=== PATIENT | male | born 1965 | race Caucasian/White ===

== ENCOUNTER 2018-04-13 15:07 | Outpatient (RCR) | payer MEDICAID ==
[2016-12-31 11:00] VITALS: Ht 167.6 cm; Wt 107.0 kg
[~2018-04-13] VITALS: Ht 167.6 cm; Wt 107.0 kg
[~2018-04-13 15:07] MED LIST: AMLO-111 PO; ATOM80CA3 PO; ATOR10TA24 PO; AZI250 PO; BUTA-303 PO; CIP500 PO; CIPR-212 PO; CITA-128 PO; CLI150 PO; CLON-303 *; COL0.6 PO; COM14R IH; CYCL10TA29 PO; DULO60CA56 PO; GABA-549 PO; GUAN1TAB34 PO; HYDR-385 PO; HYDR-4309 PO; HYDR2TAB74 PO; INSU100V24 SQ; LANI SUBQ; LEVO15TA6 PO; LISI-374 PO; LORA-629 PO; LUR80PT PO; MECL-111 PO; METH-543 PO; METO25TA93 PO; METO50TA19 PO; OXYC-865 PO; PANT40TA65 PO; PER PO; RIV10 PO; SIMV-54 PO; TRAZ100T31 PO
--- NOTE | 2018-04-13 17:28 | Medical Nutrition Therapy ---
Nutrition Anthropometrics Height (Inches): 66 Weight (Pounds): 236 BMI: 38 Isai Nutrition Score: Isai Nutrition Risk Score: Dietary Referral Nutrition Risk Factors: Mech. Ventilated Nutrition Risk Comment: Physical Findings Physical Appearance: Obese BMI 30-39 Skin Appearance Skin Appearance: Edema Edema Location Modifier: Edema Location: Type of Edema: Degree of Edema: Gastrointestinal Symptoms GI Symtoms: Tube Present: Bowel Sounds: Recent Bowel Pattern: Stool Characteristics: Nutrition/Food History Alcohol Use: Never Exercise: Yes Breakfast: 7-8 am, cheerios w/ milk, banana Lunch: 11am, [place]/[employer] [place] on wheat bread Dinner: 4-5pm, premade banquet meals Snacks: chips or crackers Nutritional Education Nutrition Education Topic: Diabetic Nutrition Learning Barriers: Emotional (Food stamps/insecurities) Learning Readiness: Interested Teaching Methods: Discussion, Handout, Demonstration Response to Teaching: Verbalize understanding, Reinforcement needed Teaching Recipient: Patient Nutrition Counselin/23. Met with pt to speak about diabetes. Pt stated he was on food stamps. Talked about lower cost foods, such as his tv dinners that he generally eats for dinner. Pt does not have teeth. Also recommneded purchasing peanut butter, frozen vegetables, and softer foods. Considered [employer], to help pt with food stamp spending, as he said he gets lower at the end of the month. Recommend pt consumes 50 g of carbs per meal. Reviewed plate method. Setup a support plan and goal with pt: want to feel in control of diabetes. Pt plans to attend diabetes classes, exercising daily, and checking blood sugar 3-4x daily, to fullfill goal. Reviewed diabetic issues, concerns, and diabetic distress. Nutrition Monitoring & Eval RD Patient Assessment Time: [address] Assessment Type: RD Education Nutritional Comment: 04/13. Provided 60 min diabetes education focusing on meals, diabetes, goals, and diabetes distress. MR Copies To Copies to: LESLEY ROMERO DO ; TIESHA BENNETT Apr 13, 2018 16:34
--- NOTE | 2018-05-10 15:53 | Medical Nutrition Therapy ---
Nutritional Education Nutrition Education Topic: Diabetic Nutrition Learning Readiness: Interested Teaching Methods: Discussion, Handout, Demonstration Response to Teaching: Verbalize understanding Teaching Recipient: Patient Nutrition Counseling: Provided diabetes education in group session discussing, what is CHO, protien, fat, healthy heart, alcohol , dining out, fiber, shoping tips. Nutrition Monitoring & Eval RD Patient Assessment Time: [address] Assessment Type: RD Education Nutritional Comment: 04/13. Provided 60 min diabetes education in a group setting focusing on nutrition Copies To Copies to: LESLEY ROMERO DO ; CODY HERNANDEZ May 10, 2018 15:52
--- NOTE | 2018-05-10 16:14 | Medical Nutrition Therapy ---
Nutrition Anthropometrics Height (Inches): 66 Weight (Pounds): 236 BMI: 38 Isai Nutrition Score: Isai Nutrition Risk Score: Dietary Referral Nutrition Risk Factors: Mech. Ventilated Nutrition Risk Comment: Physical Findings Physical Appearance: Obese BMI 30-39 Skin Appearance Skin Appearance: Edema Edema Location Modifier: Edema Location: Type of Edema: Degree of Edema: Gastrointestinal Symptoms GI Symtoms: Tube Present: Bowel Sounds: Recent Bowel Pattern: Stool Characteristics: Nutrition/Food History Good Nutritional Education Nutrition Education Topic: Other Learning Barriers: Cognitive Learning Readiness: Interested Teaching Methods: Discussion, Handout, Audiovisual Response to Teaching: Verbalize understanding Teaching Recipient: Patient Nutrition Monitoring & Eval RD Patient Assessment Time: [address] Assessment Type: RD Education Nutritional Comment: 04/13. Provided 60 min diabetes education in a group setting focusing on nutrition 05/10 Pt diagnosed with T2DM several years ago with overt symptoms and blood glucose levels in the 800's. States that he is in good control of his diabetes with blood glucose reading usually 90-120. Pt instructed on Living with Diabetes topics including foot care, oil heaterman complications, exercise, sick day care, etc. Pt appears interested in diabetes topics and able to answer questions regarding topics covered. I personally spent a total of 60 minutes educating/counseling patient regarding diabetes self-management in a group setting. See education section and my note above for details. DALE HUMPHREY May 10, 2018 16:13
== END 2018-05-18 ==
LOC: DIET 15:07
PROVIDERS: ATTEND Family Medicine
DX: Z71.3 Dietary counseling and surveillance (principal); E11.9 Type 2 diabetes mellitus without complications; Z68.38 Body mass index [BMI] 38.0-38.9, adult; Z79.84 Long term (current) use of oral hypoglycemic drugs
CPT/HCPCS: G0108; G0109

== ENCOUNTER 2018-07-27 02:41 | Day surgery (SDC) | payer MEDICAID ==
[2016-12-31 11:00] VITALS: Ht 167.6 cm; Wt 98.0 kg
[~2018-07-27] VITALS: Ht 167.6 cm; Wt 98.0 kg
[~2018-07-27 02:41] MED LIST changes: +FENO145T36 PO; -HYDR-4309 PO; +HYDR-653 PO; +METF-450 PO
[2018-07-27 08:29] VITALS: BP 146/94
[2018-07-27] MEDS ORDERED: LIDOCAINE/SOD BICARB 8.4% SYR ID ONE (08:30)
[2018-07-27] MEDS ORDERED: NORMOSOL R SOLN(*) 1000 ML BAG 1,000 ML IV PRN (08:30)
[2018-07-27] MEDS ORDERED: LIDOCAINE MPF 1% 5 ML VIAL ONE (09:24)
[2018-07-27] MEDS ORDERED: PROPOFOL EMUL(*) 10MG/ML 20 ML 40 ML ONE (09:24)
[2018-07-27 10:09] VITALS: BP 105/72
[2018-07-27 10:38] VITALS: BP 112/95
[2018-07-27 10:39] VITALS: BP 113/85
== END 2018-07-27 10:55 | disposition home or self-care (01) ==
LOC: OR 02:41
PROVIDERS: ATTEND Family Medicine
DX: Z12.11 Encounter for screening for malignant neoplasm of colon (principal); E11.9 Type 2 diabetes mellitus without complications; I10 Essential (primary) hypertension; E78.5 Hyperlipidemia, unspecified; F17.210 Nicotine dependence, cigarettes, uncomplicated; Z79.84 Long term (current) use of oral hypoglycemic drugs
CPT/HCPCS: 00812; 36416; 45378; 82948; J2001; J2704